=== PATIENT | female | born 1985 | race Two or more races ===

== ENCOUNTER 2024-08-29 06:02 | Emergency (ER) | payer MEDICAID, SELFPAY ==
[2024-08-29 06:02] VITALS: BMI 35.0
[2024-08-29 06:10] VITALS: BP 135/79; PULSE 69; RESP 18; TEMP 36.8; O2SAT 95
--- NOTE | 2024-08-29 06:20 | XR_ITS ---
Examination: Wrist, right 3 views Technique: Wrist AP, oblique, lateral 3 views Date and time of exam: August 29, 2024 at 0624 hrs. Indications: Injury to the wrist today, wrist pain Findings: No acute fracture No dislocation No foreign body Impression: No acute fracture
--- NOTE | 2024-08-29 06:22 | EDNOTE_ITS ---
<Statement entered by Adri Casillas MD - 08/30/24 06:48> As co-signing physician, I was present and available for consult prn. I concur with the plan and care as documented by the midlevel provider. Upper Extremity Injury RME/HPI General Chief Complaint: Hand/Wrist Problems Stated Complaint: RT HAND PAIN X 1DAY Time Seen by Provider: 08/29/24 06:14 Arrival date/time: 08/29/24 06:02 RME / HPI RME / HPI narrative: 39-year-old patient presents emergency department with complaint of right wrist pain for the past 1 day. Patient denies trauma but states that she recalls moving a heavy pot yesterday and woke up this morning with the pain. There is mild swelling to the right wrist. Patient has pain with flexion extension and lateral movement of the right wrist. She rates her pain as a 10 out of 10. She denies numbness and tingling to the distal right fingers. Pain is exacerbated with movement and relieved with staying still. Related Data Previous Rx's ?Medication ?Instructions ?Recorded azithromycin 250 mg tablet See Rx Instructions PO .COMPLEX #6 06/06/19 tabs dextromethorphan-guaifenesin 10 1 tab-cap PO Q8H PRN cough #30 caps 06/06/19 mg-200 mg capsule (Robitussin Cough-Chest Congestion DM) ondansetron 4 mg disintegrating 4 mg PO Q8H PRN nausea and 06/06/19 tablet vomiting #14 tabs hydrocodone 5 mg-acetaminophen 325 1 tab PO Q8H PRN pain #10 tabs 08/29/24 mg tablet ibuprofen 800 mg tablet 800 mg PO Q8H #30 tabs 08/29/24 Allergies Allergy/AdvReac Type Severity Reaction Status Date / Time No Known Allergies Allergy Verified 06/06/19 16:44 Review of Systems Review of Systems Systems Reviewed: All systems reviewed, normal except as documented Constitutional Constitutional: Reports system reviewed and no additional complaints, except as documented Cardiovascular Cardiovascular: Reports system reviewed and no additional complaints, except as documented Respiratory Respiratory: Reports system reviewed and no additional complaints, except as documented Musculoskeletal Musculoskeletal: Reports arthralgias, Reports joint swelling, Reports limited range of motion and Denies radiating pain into limb ED Exam General General appearance: Present alert and in no apparent distress Head Head exam: Present atraumatic and normocephalic ENT ENT exam: Present normal exam and normal oropharynx Chest Chest inspection: Present normal inspection and symmetric chest wall rise Respiratory Respiratory exam: Present normal lung sounds bilaterally Cardiovascular Cardiovascular exam: Present regular rate Expanded Upper Extremity Exam Forearm/Wrist exam: Present tenderness and swelling; Absent full ROM, dislocation or tenderness over anatomical snuff box Course Quality Measures none Orders Category Date Time Status Splint / Immobilizer STAT Care 08/29/24 06:20 Active XR wrist comp RT min 3V Stat Exams 08/29/24 06:20 Completed HYDROcodone*/APAP 5/325 [[place] 5/325] Med 08/29/24 06:20 Discontinued 1 tab PO X1 ONE Vital Signs Vital signs: Vital Signs Temperature 98.3 F 08/29/24 06:10 Pulse Rate 69 08/29/24 06:10 Respiratory Rate 18 08/29/24 06:10 Blood Pressure 135/79 H 08/29/24 06:10 Pulse Oximetry (%) 95 08/29/24 06:10 Oxygen Delivery Method Room Air 08/29/24 06:10 Extremity Injury MDM Narrative MDM Narrative:: 39-year-old patient presents emergency department with pain to right wrist and forearm that started today after she woke up she denies trauma but recalls moving a heavy object yesterday on physical exam there is mild swelling to the right wrist patient reports pain with flexion extension and supination of right forearm x-rays of the wrist and forearm was negative for fractures. Likely sprain of wrist patient was placed on wrist immobilizer and DC'd home Patient data External records reviewed:: None Clinical information provided by:: patient Social determinants that could affect healthcare access:: none Patient has the following chronic illnesses:: Not applicable How is presenting disease/condition affected by chronic disease/condition?: no chronic disease Evaluation data The following diagnostics were reviewed and interpreted by me:: radiology exam(s) Lab and/or radiology exams considered but not ordered:: na Interpretation Summary: na Medications / Prescriptions Medications or Prescriptions considered but not ordered:: Medication considered and ordered Medication administrations:: Medication Administration History Discontinued Medications Hydrocodone Bitart/Acetaminophen (Hydrocodone/[place]ap 5/325 Tablet) 1 tab PO X1 ONE Stop: 08/29/24 06:21 Last Admin: 08/29/24 06:25 Dose: 1 tab Documented By: CB per above Consultations Consultation(s) initiated? (list below): No Consultation #1 (Physician, Specialty, Details): na Diagnosis Upper Extremity Injury Differential Diagnosis: sprain and strain of wrist, fracture of wrist, Colles' fracture and fracture of hand Most likely diagnosis given after review of the tests above:: wrist sprain Admission Indicated Admission indicated?: not indicated Explain why admission is indicated or not indicated:: na Admission Request Was there a request for admission?: No Disposition Plan Disposition Plan: Discharge Discharge Attestation Discharge Attestation: The patient and all family members were given an opportunity to ask questions and understood the discharge instructions. Discharge instructions specifically effects, indications for sooner follow up or return to the emergency department, and the expected course of current diagnosis. Patient condition: Stable Discharge Plan Plan Patient Disposition: HOME (Self Care) Disposition Comment: I did order her a cardiac I do not know if that is showing Patient condition on transfer: Stable Prescriptions/Referrals Prescriptions/Med Rec: New ibuprofen 800 mg tablet 800 mg PO Q8H Qty: 30 0RF hydrocodone-acetaminophen 5-325 mg tablet 1 tab PO Q8H MDD 10 PRN (Reason: pain) Qty: 10 0RF No Action azithromycin 250 mg tablet See Rx Instructions .ROUTE .COMPLEX Qty: 6 0RF Rx Instructions: take 500 mg today (day 1), then 250 mg for 4 days (days 2-5) ondansetron 4 mg tablet,disintegrating 4 mg PO Q8H PRN (Reason: nausea and vomiting) Qty: 14 0RF Robitussin Cough-Chest [place] DM 10-200 mg capsule 1 tab-cap PO Q8H PRN (Reason: cough) Qty: 30 0RF Referrals: Temporary Provider,ED [Primary Care Provider] - In 1 week Problem List Clinical Impression: Sprain and strain of wrist Patient/Caregiver Discharge Instructions Education Materials: ED SCAPHOID FX Wrist Certain Print Language: Kinyarwanda Stand Alone Forms: [place] Award Info., Patient Portal Info Letter
[2024-08-29] MEDS: HYDROcodone/APAP 5/325 TABLET 1 TAB PO (06:25)
[2024-08-29] MEDS: MORPHINE SULF INJ 10 MG/ML VIAL 4 MG IM (07:52)
== END 2024-08-29 07:54 | disposition home or self-care (01) ==
LOC: SERX 08:05
PROVIDERS: Emergency Provider Emergency Medicine; PCP Family Medicine
DX: S63.501A Unspecified sprain of right wrist, initial encounter (principal); X58.XXXA Exposure to other specified factors, initial encounter
CPT/HCPCS: 73110; 96372; 99284; J2270; A9270

== ENCOUNTER → 2024-12-25 | Outpatient (CLI) | payer MEDICAID, SELFPAY ==
--- NOTE | 2024-12-25 07:00 | XR_ITS ---
Examination: MRI right wrist, without contrast Date and time of exam: December 25, 2024 at 0711 hours INDICATIONS: Lifting injury July 2024 with persistent wrist pain stiffness and swelling decreased range of motion Technique: Multiple axial sagittal and coronal images of the right wrist have been obtained with the Siemens high-resolution 1.5 [facility] MRI scanner. Images obtained include T2-weighted fat-suppressed sagittal sections, TR 3500, TE 46, T2 weighted coronal fat suppressed images, TR 3050, TE 84, T2-weighted transverse fat suppressed images, TR 3260, TE 63, proton density transverse images, TR 4720 TE 46, and T1 weighted coronal images, TR 560, TE 13. Findings: No occult fracture or bone contusion or marrow edema Minor cystic change in the navicular and lunate Coronal image 9 suspicious for tear of the triangular fibrocartilage Flexor tendons intact Normal median nerve Extensor tendons intact no tendinitis noted IMPRESSION: Recommend this patient return for MR arthrography followed by post intra-articular contrast images of the wrist to confirm small tear in the triangular fibrocartilage
== END | disposition home or self-care (01) ==
PROVIDERS: PCP Family Medicine
DX: M25.531 Pain in right wrist (principal)
CPT/HCPCS: 73221

== ENCOUNTER 2025-03-15 17:49 | Emergency (ER) | payer MEDICAID, SELFPAY ==
[2025-03-15 18:17] VITALS: BP 152/98; PULSE 77; RESP 19; TEMP 36.7; O2SAT 99; BMI 30.5
--- NOTE | 2025-03-15 18:19 | XR_ITS ---
Examination: CT brain head without contrast. 2-D sagittal coronal reconstructions Date and time of exam:March 15, 2025, 1914 hours INDICATIONS: Hypertension with headaches beginning 2 days ago CTDI: vol (mGy):50.3 DLP: (mGycm):1000 Technique: Multiple CT axial sections of the brain have been obtained, 5 mm slice thickness. Contrast has not been administered. 2-D sagittal, coronal reconstructions have been obtained Low dose protocols were performed. One or more of the following dose reduction techniques were used; automated exposure control, adjustment of the mA and/or KV according to patient size, use of iterative reconstruction technique. Findings: No significant ventricular enlargement. Intra-axial or extra-axial hemorrhage density is not seen. No mass effect or midline shift Basal cisterns are not remarkable. Fourth ventricle is midline. Cranial vault intact. Impression: Negative for acute hemorrhage, mass effect or midline shift
--- NOTE | 2025-03-15 18:22 | EDNOTE_ITS ---
ED Headache RME/HPI General Chief Complaint: Headache Stated Complaint: HERNANDEZ X 2 days, HTN Time Seen by Provider: 03/15/25 18:03 Arrival date/time: 03/15/25 17:49 RME / HPI RME / HPI Narrative: 40-year-old female patient came in for evaluation regarding headache. Patient has been having worsening headache for the last 24 hours, brought on in location, associated with nausea. Patient denies any fever denies any vomiting denies any neck pain denies any other complaints. 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 Been taking Tylenol with no relief Related Data Previous Rx's ?Medication ?Instructions ?Recorded azithromycin 250 mg tablet See Rx Instructions PO .COM PLEX #6 06/06/19 tabs dextromethorphan-guaifenesin 10 1 tab-cap PO Q8H PRN c ough #30 caps 06/06/19 mg-200 mg capsule (Robitussin Cough-Chest Congestion DM) ondansetron 4 mg disintegrating 4 mg PO Q8H PRN nausea and 06/06/19 tablet vomiting #14 tabs hydrocodone 5 mg-acetaminophen 325 1 tab PO Q8H PRN pa in #10 tabs 08/29/24 mg tablet ibuprofen 800 mg tablet 800 mg PO Q8H #30 tabs 08/29 rizatriptan 10 mg disintegrating See Rx Instructions P O .COMPLEX 03/15/25 tablet (Maxalt-MOTORCYCLE SUBASSEMBLER) #30 tabs Allergies Allergy/AdvReac Type Severity Reaction Status Date / Time No Known Allergies Allergy Verified 03/15/25 17:53 Review of Systems Review of Systems Narrative Review of Systems: Review of system reviewed and within normal limits except mentioned in HPI ED Exam Narrative Physical exam: VITAL SIGNS: Reviewed. GENERAL APPEARANCE: Alert and interactive, follows commands, no acute distress, HEAD AND FACE: Non-traumatic. ENT: PERRL, pink conjunctivitis, eyelid no trauma, Mucous membrane moist. NECK: Supple, nontender, no nuchal rigidity. CHEST: No tenderness, no crepitus, no paradoxical movement, no retractions. LUNGS: Clear, well ventilated, symmetric, no rales, no wheezing, no ronchi, no stridor, good breath sounds bilaterally. HEART: Regular rate, regular rhythm, no murmur, no gallops. ABDOMEN: Soft, positive bowel sounds, nondistended, no guarding, nontender, no rebound, no masses, RECTAL: Deferred. GENITAL: Deferred. NEUROLOGICAL: Gross motor function intact sensory function intact, Appropriate for age. MUSCULOSKELETAL: low back nontender, full range of motion. EXTREMITIES: Nontender, full range of motion. SKIN: Color pink, dry, no rash, no lacerations, no abrasions, no contusions. LYMPHATICS: Deferred. Course Quality Measures none Orders Category Date Time Status CT head/brain wo con Stat Exams 03/15/25 18:19 Completed Acetaminophen Tab [Tylenol ES Tab] Med 03/15/25 18:19 Discontinued 1,000 mg PO X1 ONE DiphenhydrAMINE [Benadryl] Med 03/15/25 18:19 Discontinued 50 mg PO X1 ONE Ketorolac Inj [Toradol Inj] Med 03/15/25 21:21 Once 30 mg IM X1 ONE Metoclopramide [Reglan] Med 03/15/25 18:19 Discontinued 10 mg PO X1 ONE Vital Signs Vital signs: Vital Signs Temperature 98.1 F 03/15/25 18:17 Pulse Rate 77 03/15/25 18:17 Respiratory Rate 19 03/15/25 18:17 Blood Pressure 152/98 H 03/15/25 18:17 Pulse Oximetry (%) 99 03/15/25 18:17 Oxygen Delivery Method Room Air 03/15/25 18:17 Headache MDM Narrative MDM Narrative:: 40-year-old female patient came in for evaluation regarding headache. Patient has been having worsening headache for the last 24 hours, brought on in location, associated with nausea. Patient denies any fever denies any vomiting denies any neck pain denies any other complaints. 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 Been taking Tylenol with no relief CT scan of the head came back unremarkable. Results discussed with the patient and family Patient received Tylenol, Reglan, and Benadryl with significant improvement Patient received Toradol IM with significant improvement of symptoms Patient data External records reviewed:: None Clinical information provided by:: patient Social determinants that could affect healthcare access:: none Patient has the following chronic illnesses:: None How is presenting disease/condition affected by chronic disease/condition?: no chronic disease Evaluation data The following diagnostics were reviewed and interpreted by me:: radiology exam(s) Lab and/or radiology exams considered but not ordered:: None Interpretation Summary: CT scan of the head came back unremarkable. Medications / Prescriptions Medications or Prescriptions considered but not ordered:: None Medication administrations:: Medication Administration History Ketorolac Tromethamine (Ketorolac Inj 60 Mg/2 Ml Vial) 30 mg IM X1 ONE Stop: 03/15/25 21:22 Discontinued Medications Acetaminophen (Acetaminophen 500 Mg Tablet) 1,000 mg PO X1 ONE Stop: 03/15/25 18:20 Last Admin: 03/15/25 18:50 Dose: 1,000 mg Documented By: KARI Diphenhydramine HCl (Diphenhydramine 25 Mg Capsule) 50 mg PO X1 ONE Stop: 03/15/25 18:20 Last Admin: 03/15/25 18:51 Dose: 50 mg Documented By: KARI Metoclopramide HCl (Metoclopramide 5 Mg Tablet) 10 mg PO X1 ONE Stop: 03/15/25 18:20 Last Admin: 03/15/25 18:51 Dose: 10 mg Documented By: KARI Tylenol Benadryl Reglan and Toradol IM Consultations Consultation(s) initiated? (list below): No Diagnosis Differential diagnosis headache: migraine, headache and other (Intracranial bleed) Most likely diagnosis given after review of the tests above:: Headache Admission Indicated Admission indicated?: not indicated Admission Request Was there a request for admission?: No Disposition Plan Disposition Plan: Discharge Discharge Attestation Discharge Attestation: The patient and all family members were given an opportunity to ask questions and understood the discharge instructions. Discharge instructions specifically effects, indications for sooner follow up or return to the emergency department, and the expected course of current diagnosis. Patient condition: Stable Discharge Plan Plan Patient Disposition: HOME (Self Care) Discharge Disposition comment: Stable Prescriptions/Referrals Prescriptions/Med Rec: New rizatriptan [Maxalt-MOTORCYCLE SUBASSEMBLER] 10 mg tablet,disintegrating See Rx Instructions .ROUTE .COMPLEX Qty: 30 0RF Rx Instructions: take 1 tab at onset of headache; if no relief may repeat 1 tab after at least 2 hrs; max = 3 tabs/24 hr No Action azithromycin 250 mg tablet See Rx Instructions .ROUTE .COMPLEX Qty: 6 0RF Rx Instructions: take 500 mg today (day 1), then 250 mg for 4 days (days 2-5) ondansetron 4 mg tablet,disintegrating 4 mg PO Q8H PRN (Reason: nausea and vomiting) Qty: 14 0RF Robitussin Cough-Chest [place] DM 10-200 mg capsule 1 tab-cap PO Q8H PRN (Reason: cough) Qty: 30 0RF ibuprofen 800 mg tablet 800 mg PO Q8H Qty: 30 0RF hydrocodone-acetaminophen 5-325 mg tablet 1 tab PO Q8H MDD 10 PRN (Reason: pain) Qty: 10 0RF Referrals: Antwon Wynn MD [Primary Care Provider] - In 1 week Problem List Clinical Impression: Headache Patient/Caregiver Discharge Instructions Discharge Activity: activity as tolerated Education Materials: Self-Care for Headaches Additional Instructions: Thank you for the opportunity for serving you today. You are stable for discharged . You are advised to: Follow-up with your PCP in 1 to 2 days Return to ED for worsening of symptoms Increase oral fluids Take medication as prescribed Print Language: Kyrgyz Stand Alone Forms: [place] Award Info., Patient Portal Info Letter PEYTON/MAUREEN Supervising Physician PEYTON/MAUREEN Supervising Physician: MD Maddy
[2025-03-15] MEDS: ACETAMINOPHEN 500 MG TABLET 1000 MG PO (18:50)
[2025-03-15] MEDS: METOCLOPRAMIDE 5 MG TABLET 10 MG PO (18:51)
[2025-03-15] MEDS: KETOROLAC INJ 60 MG/2 ML VIAL 30 MG IM (22:02)
== END 2025-03-15 22:05 | disposition home or self-care (01) ==
PROVIDERS: Emergency Provider Emergency Medicine; PCP Family Medicine
DX: R51.9 Headache, unspecified (principal); I10 Essential (primary) hypertension
CPT/HCPCS: 70450; 96372; 99283; J1885; A9270